=== PATIENT | male | born 1970 | race Two or more races ===

== ENCOUNTER 2017-01-03 09:28 | Emergency (ER) | payer OTHER ==
[2017-01-03 09:33] VITALS: TEMP 97.5; BMI 25.0
--- NOTE | 2017-01-03 09:50 | PDOC ---
History of Present Illness - General Chief Complaint: Lightheaded Stated Complaint: HEADACHES, LETHARGIC Time Seen by Provider: 01/03/17 09:41 History Source: Patient Exam Limitations: No Limitations - History of Present Illness Initial Comments: 01/03/17 09:59 46y M hx no pmhx presents with complaint of dizziness. The pt states that he was drinking on sunday, on sunday he had numerous episodes of nbnb vomiting and non bloody, non melantic diarrhea. The sypmtoms resolved by sunday but on sundayhe endorses a diffuse pounding headache and was feeling lightheaded when he was sitting up/walking and felt improved when he was atrest. Pt denies any recent head injury, fever/chills, neck pain, vision changes, numbness/tingling/ weakness, back pain. pt denies any further diarrhea/voimting since today. Past History - Past Medical History Allergies/Adverse Reactions: Allergies Allergy/AdvReac Type Severity Reaction Status Date / Time No Known Allergies Allergy Verified 01/03/17 09:33 Home Medications: Ambulatory Orders Meclizine HCl [Antivert -] 25 mg PO TID PRN #14 tablet 01/03/17 Other medical history: NONE - Family Disease History Family Disease History: Other: Father (PROSTATE ISSUES) - Psycho/Social/Smoking Cessation Hx Anxiety: No Suicidal Ideation: No Smoking Status: No Smoking History: Never smoked Have you smoked in the past 12 months: No Hx Alcohol Use: Yes (SOCIAL) Drug/Substance Use Hx: No Substance Use Type: None Review of Systems - Review of Systems Able to Perform ROS?: Yes Comments:: 01/03/17 10:03 Constitutional - no reported Fever, Chills, HEENT: no reported vision changes, sore throat Respiratory: no reported cough, sob, hemoptysis Cardiac: no reported chest pain, palpitations, l leg swelling Abd/GI: +nausea, vomiting, diarrhea (ResolveD) no reported abd pain, blood per rectum, melena : no reported dysuria, frequency, discharge Musculskelatal - no reported back pain, joint swelling skin - no reported bruising, erythema, rash neurological: +lightheaded/dizzy, no reported headache, numbness, focal weakness , tingling, ataxia, hematologic: no reported anemia, easy bruising, easy bleeding *Physical Exam - Vital Signs Last Vital Signs Temp Pulse Resp BP Pulse Ox 97.5 F L 56 L 20 121/76 98 01/03/17 09:30 01/03/17 09:30 01/03/17 09:30 01/03/17 09:30 01/03/17 09:30 - Physical Exam Comments: 01/03/17 10:04 GENERAL: The patient is awake, alert, and fully oriented, Nontoxic - in no acute distress. HEAD: Normocephalic, atraumatic. EYES: extraocular movements intact, sclera anicteric, conjunctiva clear. ENT: Normal voice, Moist mucous membranes. NECK: Normal range of motion, supple LUNGS: Breath sounds equal, clear to auscultation bilaterally. No wheezes, no rhonchi, no rales. HEART: Regular rate and rhythm, normal S1 and S2 without murmur, rub or gallop. ABDOMEN: Soft, nontender, normoactive bowel sounds. No guarding, no rebound. . No CVA tenderness EXTREMITIES: Normal range of motion, no edema. No clubbing or cyanosis. No cords, erythema, or tenderness. PSYCH: Normal mood, normal affect. SKIN: Warm, Dry, normal turgor, NEURO: Mental status: The patient is oriented x3. Cranial nerves: Cranial nerves II through XII are intact Motor: The upper extremities are 5 over 5 in all muscle groups. The lower extremities are 5 over 5 in all muscle groups. Negative pronator drift Sensation: Sensation is intact to light touch throughout. romberg negative Cerebellar: Aujtoo-kjpbrn-nazc is normal in both upper extremities. rapid alternating movements are normal. Gait: Normal. Heel and toe walking are normal. Heart Score/ECG Review - ECG Impressions Comment:: 01/03/17 11:58 Twelve-lead EKG was performed and reviewed by me. There is normal sinus rhythm with a rate of 57 Incomplete right bundle-branch block The axis is normal. The intervals are normal. There is normal R wave progression ED Treatment Course - LABORATORY CBC & Chemistry Diagram: 01/03/17 10:30 01/03/17 10:30 Medical Decision Making - Medical Decision Making 01/03/17 10:05 suspect dehuydration vs vertigo will obtain ekg to screen for arrythmia will ck basic labs to r/o anemia, metabolic dernagement. fluids, reglan, meclizine will reassess 01/03/17 11:53 pt feeling improved labs reviewed unremarakable ambulating without any dizziness/vertigo will dc the pt with pmd fu retur nprecautions were discussed I discussed the physical exam findings, ancillary test results and final diagnoses with the patient. I answered all of the patient's questions. The patient was satisfied with the care received and felt comfortable with the discharge plan and treatment plan. The patient will call their primary care physician within 24 hours to arrange follow-up and will return to the Emergency Department with any new, persistent or worsening symptoms. *DC/Admit/Observation/Transfer Diagnosis at time of Disposition: Vertigo - Discharge Dispostion Disposition: HOME Condition at time of disposition: Improved Admit: No - Referrals Referrals: [facility] [Provider Group] - Patient Instructions Printed Discharge Instructions: DI for Vertigo Additional Instructions: Vuelva al departamento de emergencia inmediatamente con CUALQUIER nuevo, persistente o empeorando los sntomas. Debe llamar y seguir con joseph mdico maana para cammie evaluacin ms detallada de emanuel sntomas. Los resultados fueron discutidos con usted. Por favor, asegrese de que joseph mdico revise los resultados de joseph evaluacin de emergencia. Si usted tuvo alguna radiografa nanette joseph visita, fue ledo preliminarmente por m mismo, un radilogo lo revisar y si hay algn hallazgo adicional lo llamaremos. Return to the emergency department immediately with ANY new, persistent or worsening symptoms. You MUST call and follow up with your doctor tomorrow for further evaluation of your symptoms. Results were discussed with you. Please make sure your doctor reviews the results of your emergency evaluation. If you had any xrays during your visit, it was read preliminarily by myself, a Radiologist will review it and if there are any additional findings we will call you. Print Language: TAMAZIGHT
[2017-01-03] MEDS ORDERED: MECLIZINE HCL 25 MG TABLET (FP) PO ONE (09:58)
[2017-01-03] MEDS ORDERED: METOCLOPRAMIDE HCL INJECTION 10 MG/2 ML VIAL IVPUSH ONE (09:58)
[2017-01-03] MEDS ORDERED: MECLIZINE HCL 25 MG TABLET (FP) ONE ×2 (10:37→10:40)
[2017-01-03] MEDS ORDERED: METOCLOPRAMIDE HCL 10 MG TABLET (FP) PO ONE (10:38)
[2017-01-03] MEDS ORDERED: METOCLOPRAMIDE HCL INJECTION 10 MG/2 ML VIAL ONE (10:39)
[2017-01-03 10:42] LABS: BASOPHIL 0.8 % (0-2.0); EOSINOPHIL 0.4 % (0-4.5); MCHC 32.9 g/dl (32.0-35.9); MEAN CELL VOLUME 91.1 fl (80-96); MEAN PLT VOLUME 9.8 fl (7.5-11.1); PLATELET COUNT 185 K/MM3 (134-434); RDW 16.5 % (11.9-15.9); WHITE BLOOD COUNT 6.4 K/mm3 (4.0-10.0)
[2017-01-03 11:13] LABS: ALBUMIN 3.9 g/dl (3.4-5.0); ALK PHOS 75 U/L (45-117); ANION GAP 8 (8-16); BILIRUBIN,TOTAL 1.7 mg/dL (0.2-1.0); CALCIUM 8.7 mg/dL (8.5-10.1); CO2 28 mmol/L (21-32); CREATININE 0.7 mg/dL (0.7-1.3); GLUCOSE,RANDOM 103 mg/dL (74-106); SGPT/ALT 20 U/L (12-78)
[2017-01-03 11:36] LABS: SGOT/AST 16 U/L (15-37)
[2017-01-03 13:12] VITALS: BP 108/6; PULSE 58
--- NOTE | 2017-01-04 11:17 | EKG ---
Test Reason : Blood Pressure : / mmHG Vent. Rate : 057 BPM Atrial Rate : 057 BPM P-R Int : 154 ms QRS Dur : 106 ms QT Int : 416 ms P-R-T Axes : 063 014 046 degrees QTc Int : 404 ms SINUS BRADYCARDIA INCOMPLETE RIGHT BUNDLE BRANCH BLOCK BORDERLINE ECG WHEN COMPARED WITH ECG OF 31-MAY-2016 14:27, INCOMPLETE RIGHT BUNDLE BRANCH BLOCK IS NOW PRESENT Confirmed by LYNN WONG, JOSE J ([id number]) on 01/04/2017 11:16:24 AM Referred By: Confirmed By:JOSE J BAILEY MD
== END 2017-01-03 13:10 | disposition home or self-care (01) ==
LOC: JER 09:28
PROC: 3E033GC Introduction of Other Therapeutic Substance into Peripheral Vein, Percutaneous Approach (ICD-10-PCS; principal; 2017-01-03)
DX: R42 Dizziness and giddiness (principal)
CPT/HCPCS: 36415; 80053; 85025; 86850; 86900; 86901; 93005; 93010; 96374; 99282-25

== ENCOUNTER 2024-03-08 11:22 | Emergency (ER) | payer OTHER ==
[2024-03-08 11:42] VITALS: BP 137/85; PULSE 72; RESP 18; TEMP 98.2; BMI 58.6
[2024-03-08] MEDS ORDERED: ACETAMINOPHEN 325 MG TABLET (FP) ONE (12:07)
[2024-03-08] MEDS: ACETAMINOPHEN 500 MG TABLET (FP) PO ONE (12:12)
== END 2024-03-08 12:49 | disposition home or self-care (01) ==
LOC: JER 11:22
DX: R51.9 Headache, unspecified (principal); M54.2 Cervicalgia; V43.52XA Car driver injured in collision with other type car in traffic accident, initial encounter
CPT/HCPCS: 70450-TC; 72125-TC; 99284-25